=== PATIENT | female | born 1965 | race Caucasian/White ===

== ENCOUNTER 2023-12-09 05:59 | Emergency (ER) | payer OTHER, SELFPAY ==
--- NOTE | 2023-12-09 06:06 | XRR_ITS ---
PROCEDURE INFORMATION: Exam: XR Chest Exam date and time: 12/09/2023 6:29 AM Age: 58 years old Clinical indication: Cough and dyspnea; Additional info: Dyspnea/cough TECHNIQUE: Imaging protocol: Radiologic exam of the chest. Views: 1 view. COMPARISON: No relevant prior studies available. FINDINGS: Lungs: Unremarkable. No consolidation. Pleural spaces: Unremarkable. No pleural effusion. No pneumothorax. Heart/Mediastinum: Unremarkable. No cardiomegaly. Bones/joints: Unremarkable. XR/XR chest 1V portable [id number] IMPRESSION: No acute findings.
[2023-12-09 06:09] VITALS: BP 173/110; PULSE 119; RESP 20; TEMP 37.1; O2SAT 100; BMI 30.2
--- NOTE | 2023-12-09 06:11 | ED_ITS ---
HPI - Abdominal Pain 2 General: Chief Complaint: Urogenital-Female Stated Complaint: severe low abd pain blood in urine Time Seen by Provider: 12/09/23 06:05 History of Present Illness: 58-year-old female presents emergency ro om complaining of severe lower abdominal pain with hematuria. Pain began suddenly this morning accompanied by blood- tinged urine. She relates most of the pain suprapubic at the midline. She denies any fever sweats or chills no history of nephrolithiasis. Patient has not had any intra-abdominal surgeries had as a contact. Associated Symptoms: Reports hematuria; Denies chills, dysuria and fever(s) Related Data Previous Rx's Medication Instructions Recorded ciprofloxacin HCl 500 mg tablet 500 mg PO BID #20 tabs 12/09/23 (Cipro) phenazopyridine 200 mg tablet 200 mg PO TID 6 doses #6 tabs 12/09/23 (Pyridium) Review of Systems 2 Const: Denies: fever(s) or chills Card: Denies: chest pain Resp: Denies: dyspnea GI: Reports: abdominal pain : Reports: hematuria; Denies: dysuria, urinary frequency or urinary urgency Musc: Denies: neck pain or back pain Skin/Breast: Denies: rash Physical Exam 2 Const: COMMON NORMALS: no acute distress GENERAL APPEARANCE: cooperative and comfortable ORIENTATION/CONSCIOUSNESS: Yes awake, Yes oriented to person, Yes oriented to place and Yes oriented to time HENMT: COMMON NORMALS: normocephalic, atraumatic and hearing grossly normal bilaterally HEAD & SCALP: normocephalic and atraumatic Resp: COMMON NORMALS: normal respiratory effort, No retractions, No use of accessory muscles and clear to auscultation bilaterally AUSCULTATION: clear to auscultation bilaterally Cardio: COMMON NORMALS: regular rate, regular rhythm and No murmurs present (Cardio) RATE: regular rate RHYTHM: regular rhythm GI: COMMON NORMALS: Soft to palpation and No hepatosplenomegaly present A USCULTATION: Yes normoactive bowel sounds PALPATION: Yes Soft to palpation, No Tenderness to palpation present (GI), No Guarding due to palpation present (GI) and Yes No hepatosplenomegaly present Extremity: COMMON NORMALS: normal to inspection, capillary refill normal, no clubbing, cyanosis or edema, no calf tenderness and no pedal edema Neuro: SENSORIUM/ORIENTATION: Yes oriented to person, Yes oriented to place and Yes oriented to time Skin: COMMON NORMALS: no rashes or lesions noted GENERAL SKIN EXAM: no rashes or lesions noted Course 2 Vital Signs: Vital signs: Vital Signs Temperature 98.8 F 12/09/23 06:09 Pulse Rate 103 H 12/09/23 11:12 Respiratory Rate 18 12/09/23 06:24 Blood Pressure 141/80 12/09/23 11:12 Pulse Oximetry 96 12/09/23 11:12 Oxygen Delivery Me thod Room Air 12/09/23 09:20 MDM - Abdominal Pain Medical Decision Making Patient presented with significant hematuria in the first urine sample showed large amount of blood however we had placed a Mendoza intending to irrigate and the urine output from the Mendoza was completely clear we repeated the urine shows signs of cystitis but no further blood. White count is 13 7 she is better after pain medications her lactic acid is 1.1. She has isolated transaminitis with no elevation of her T. bili no lipase elevation. Urine is being cultured. She had 3+ leukocyte esterase and 50-100 white blood cells while having 0 red blood cells compared to the previous urine sample that showed very high numbers of red blood cells to the point it was grossly hematuric and they were not able to do the dip on the urine. She was given dose of IV antibiotics here we will discharge her home with oral antibiotics and Pyridium. Encouraged her to follow-up with her primary care doctor in the next week or 2. She should have a repeat urine if she still has blood in the urine she may need to see urology for cystoscopy. She is moving to this area and is given the names and contact information for a couple of docs locally that are accepting new patients. Lab Data I reviewed the patient's lab results. 12/09/23 06:18 12/09/23 06:18 Labs/Radiology: Radiology Impressions Chest X-Ray 12/09/23 06:06 IMPRESSION: No acute findings. Abdomen/Pelvis CT 12/09/23 06:56 IMPRESSION: 1. Diverticulosis. Laboratory Results WBC 13.73 10^3/uL (3.29-11.43) H 12/09/23 06:18 RBC 5.64 10^6/uL (3.85-5.65) 12/09/23 06:18 Hgb 18.20 g/dL (11.27-16.99) H 12/09/23 06:18 Hct 53.6 % (36-47) H 12/09/23 06:18 MCV 95.0 fl (85-98) 12/09/23 06:18 MCH 32.3 pg (27-33) 12/09/23 06:18 MCHC 34.0 g/dL (30-55) 12/09/23 06:18 RDW 12.5 % (12.1-15.1) 12/09/23 06:18 Plt Count 192 10^3/cmm (157-399) 12/09/23 06:18 MPV 11.1 fL (7.4-10.4) H 12/09/23 06:18 Neut % (Auto) 87.5 % 12/09/23 06:18 Lymph % (Auto) 5.1 % 12/09/23 06:18 Sandoval % (Auto) 5.5 % 12/09/23 06:18 Eos % (Auto) 1.2 % 12/09/23 06:18 Baso % (Auto) 0.4 % 12/09/23 06:18 Neut # (Auto) 12.01 10^3/uL (1.8-7.7) H 12/09/23 06:18 Lymph # (Auto) 0.7 10^3/uL (0.8-4.8) L 12/09/23 06:18 Sandoval # (Auto) 0.8 10^3/uL (0.2-0.9) 12/09/23 06:18 Eos # (Auto) 0.2 10^3/uL (0.0-0.8) 12/09/23 06:18 Baso # (Auto) 0.1 10^3/uL (0.0-0.1) 12/09/23 06:18 Nucleated RBC % (auto) 0 % 12/09/23 06:18 Nucleated RBCs # 0.0 /100WBC 12/09/23 06:18 Sodium 133 mmol/L (136-145) L 12/09/23 06:18 Potassium 4.0 mmol/L (3.5-5.1) 12/09/23 06:18 Chloride 99 mmol/L (98-107) 12/09/23 06:18 Carbon Dioxide 21 mmol/L (22-29) L 12/09/23 06:18 Anion Gap 17.0 (5-19) 12/09/23 06:18 BUN 15 mg/dL (6-20) 12/09/23 06:18 Creatinine 0.8 mg/dL (0.5-0.9) 12/09/23 06:18 GFR Calculation 73.9 mL/min (90-130) L 12/09/23 06:18 Glucose 103 mg/dL (65-115) 12/09/23 06:18 Calculated Osmolality 277 mOsm/kg (285-295) L 12/09/23 06:18 Lactic Acid 1.1 mmol/L (0.5-2.2) 12/09/23 06:18 Calcium 8.6 mg/dL (8.5-10.5) 12/09/23 06:18 Total Bilirubin 0.8 mg/dL (0.15-1.2) 12/09/23 06:18 AST 41 U/L (0-32) H 12/09/23 06:18 ALT 93 U/L (0-33) H 12/09/23 06:18 Alkaline Phosphatase 48 U/L (35-105) 12/09/23 06:18 Total Protein 6.7 g/dL (6.6-8.7) 12/09/23 06:18 Albumin 4.4 g/dL (3.5-5.2) 12/09/23 06:18 Globulin 2.3 g/dL (1.3-4.6) 12/09/23 06:18 Lipase 20 U/L (13-60) 12/09/23 06:18 Urine Color Yellow (Yellow) 12/09/23 10:06 Urine Appearance Clear (CLEAR) 12/09/23 10:06 Urine pH 6.5 (5-7) 12/09/23 10:06 Ur Specific [place] 1.003 (1.005-1.030) L 12/09/23 10:06 Urine Protein Negative (Negative) 12/09/23 10:06 Urine Glucose (UA) Negative (Normal) 12/09/23 10:06 Urine Ketones Negative (Negative) 12/09/23 10:06 Urine Blood 3+ (Negative) A 12/09/23 10:06 Urine Nitrate Negative (Negative) 12/09/23 10:06 Urine Bilirubin Negative (Negative) 12/09/23 10:06 Urine Urobilinogen 0.2 mg/dL (Negative) 12/09/23 10:06 Ur Leukocyte Esterase 3+ (Negative) A 12/09/23 10:06 Urine RBC 0-2 /hpf (0-2) 12/09/23 10:06 Urine WBC 51-100 /hpf (0-5) H 12/09/23 10:06 Ur Squamous Epith Cells 0-5 /hpf (0-5) 12/09/23 10:06 Amorphous Sediment Not Reportable 12/09/23 10:06 Urine Bacteria None seen /hpf (NONE) 12/09/23 10:06 Hyaline Casts 0-4 /lpf H 12/09/23 10:06 All radiology interpretation(s) finalized by discharge Discharge Plan Discharge Patient Disposition: Home Clinical Impression: Urinary tract infection Condition: Stable Prescriptions: New Cipro 500 mg tablet 500 mg PO BID Qty: 20 0RF Pyridium 200 mg tablet 200 mg PO TID Qty: 6 0RF Discharge Orders: Discharge ED (Routine); Ordered 12/09/23 Ordered By: Steve Mancilla Referrals: Tyrese Gregory DO [Physician] - Sophia Nguyen MD [Staff Physician] - Beni Lake MD [Physician] - Discharge Diet: Advance as tolerated Discharge Activity: Resume usual activity Patient Instructions: Opioid Safety, Pain Management Activity Restrictions/Additional Instructions: Thank you for choosing [facility] for your healthcare needs today. It is very important that you follow up as instructed or that you return to the Emergency Department should you have concerns or if your condition changes or worsens in any way. You were seen today for blood in the urine. Blood did clear up your white count is slightly elevated and there is sign of a bladder infection. Urine will be cultured you are given Rocephin in the emergency room recommend to start oral antibiotics 1 pill twice a day beginning tomorrow. Coding Level of Care Code ED C Java Developer for Samantha Moralez
[2023-12-09 06:24] VITALS: BP 173/110; PULSE 114; RESP 18; O2SAT 99
[2023-12-09 06:27] LABS: Charge for UA Resulting for Rev
[2023-12-09 06:28] LABS: Basophils # 0.1 10^3/uL (0.0-0.1); Basophils % 0.4 %; Eosinophils # 0.2 10^3/uL (0.0-0.8); Eosinophils % 1.2 %; Hematocrit 53.6 % (36-47); Lymphocytes # 0.7 10^3/uL (0.8-4.8); Lymphocytes % 5.1 %; Mean Corpuscular Hemoglobin 32.3 pg (27-33); Mean Platelet Volume 11.1 fL (7.4-10.4); Monocytes # 0.8 10^3/uL (0.2-0.9); Monocytes % 5.5 %; Neutrophils # 12.01 10^3/uL (1.8-7.7); Neutrophils % 87.5 %; Nucleated Red Blood Cells % 0 %; Platelet Count 192 10^3/cmm (157-399); Red Blood Count 5.64 10^6/uL (3.85-5.65); Red Cell Distribution Width 12.5 % (12.1-15.1); White Blood Count 13.73 10^3/uL (3.29-11.43)
[2023-12-09] MEDS: ondansetron 2 mg/ML SDV 2 mL 4 MG IVP (06:33)
[2023-12-09] MEDS: sodium chloride 0.9% 1,000 ML 999 ML IV ×2 (06:33→08:59)
[2023-12-09] MEDS: morphine 4 mg/mL SDV 1 mL IVP ×2 (06:34→10:11)
[2023-12-09 06:40] LABS: Urine Appearance Slightly Cloudy (CLEAR); Urine Color Red (Yellow)
[2023-12-09 06:41] LABS: RBC Urine 0-4 /hpf (0-2)
[2023-12-09 06:42] LABS: Add Urine Culture? Yes; Bacteria Urine 2+ /hpf; WBC Urine >100 /hpf (0-5)
[2023-12-09 06:45] LABS: Alanine Aminotransferase 93 U/L (0-33); Albumin Level 4.4 g/dL (3.5-5.2); Alkaline Phosphatase 48 U/L (35-105); Aspartate Amino Transferase 41 U/L (0-32); Blood Urea Nitrogen 15 mg/dL (6-20); Calcium 8.6 mg/dL (8.5-10.5); Carbon Dioxide 21 mmol/L (22-29); Chloride 99 mmol/L (98-107); Creatinine Clr Calc Pharmacy 70.6847; Globulin 2.3 g/dL (1.3-4.6); Glomerular Filtration Rate 73.9 mL/min (90-130); Glucose 103 mg/dL (65-115); Lipase 20 U/L (13-60); Osmolality Calculated 277 mOsm/kg (285-295); Sodium 133 mmol/L (136-145); Total Bilirubin 0.8 mg/dL (0.15-1.2); Total Protein 6.7 g/dL (6.6-8.7)
--- NOTE | 2023-12-09 06:56 | CTR_ITS ---
PROCEDURE INFORMATION: Exam: CT Abdomen And Pelvis Without Contrast Exam date and time: 12/09/2023 7:47 AM Age: 58 years old Clinical indication: Abdominal pain; Localized; Lower; Additional info: Flank pain TECHNIQUE: Imaging protocol: Computed tomography of the abdomen and pelvis without contrast. Radiation optimization: All CT scans at this facility use at least one of these dose optimization techniques: automated exposure control; mA and/or kV adjustment per patient size (includes targeted exams where dose is matched to clinical indication); or iterative reconstruction. COMPARISON: CR (CHEST, ) 12/09/2023 6:29 AM RADIATION DOSE METRICS: Total DLP (mGy-cm): 661.67 FINDINGS: Lungs: Lung bases are clear as visualized. Diaphragm: There is a small hiatal hernia. Liver: Normal. No mass. Gallbladder and biliary ducts: Normal. No calcified stones. No ductal dilation. Pancreas: Normal. No ductal dilation. Spleen: Normal. No splenomegaly. Adrenal glands: Normal. No mass. Kidneys and ureters: Normal. No hydronephrosis. Stomach and bowel: There are scattered colonic diverticula. No large bowel wall thickening is appreciated. No dilated loops of large or small bowel is appreciated. Appendix: No evidence of appendicitis. Intraperitoneal space: Unremarkable. No free air. No significant fluid collection. Vasculature: Unremarkable. No abdominal aortic aneurysm. Lymph nodes: Unremarkable. No enlarged lymph nodes. Urinary bladder: Unremarkable as visualized. Reproductive: Unremarkable as visualized. Bones/joints: Unremarkable. No acute fracture. Soft tissues: Unremarkable. CT/CT kidney stone [id number] IMPRESSION: 1. Diverticulosis.
[2023-12-09 07:14] VITALS: BP 149/88
[2023-12-09 08:20] VITALS: BP 135/91
[2023-12-09 08:45] LABS: Lactic Sepsis W/Reflex 1.1 mmol/L (0.5-2.2)
[2023-12-09] MEDS: cefTRIAXone 1,000 mg SDV 1000 MG IVP (08:59)
[2023-12-09 09:20] VITALS: BP 142/92; O2SAT 98
[2023-12-09 10:15] LABS: Charge for UA Resulting for Rev
[2023-12-09 10:18] LABS: Bilirubin Urine Negative (Negative); Blood Urine 3+ (Negative); Glucose Urine UA Negative (Normal); Ketones Urine Negative (Negative); Leukocyte Esterase Urine 3+ (Negative); Nitrate Urine Negative (Negative); Protein Urine Negative (Negative); Specific Gravity, Urine 1.003 (1.005-1.030); Urine Appearance Clear (CLEAR); Urine Color Yellow (Yellow); Urobilinogen Urine 0.2 mg/dL (Negative); pH Urine 6.5 (5-7)
[2023-12-09 10:23] LABS: Bacteria Urine None Seen /hpf; Hyaline Casts Urine 0-4 /lpf; RBC Urine 0-2 /hpf (0-2); Squamous Epithelial Cell Urine 0-5 /hpf (0-5); WBC Urine 51-100 /hpf (0-5)
[2023-12-09 11:12] VITALS: BP 141/80; PULSE 103; O2SAT 96
== END 2023-12-09 11:13 | disposition home or self-care (01) ==
PROVIDERS: Emergency Provider Family Medicine
DX: N39.0 Urinary tract infection, site not specified (principal)
CPT/HCPCS: 36415; 71045; 74176; 80053; 81003; 81015; 83605; 83690; 85025; 87077; 87086; 87186; 96361; 96374; 96375; 96376; 99285; J0696; J2270; J2405; J7030